=== PATIENT | male | born 1985 | race Caucasian/White ===

== ENCOUNTER 2025-01-03 12:42 | Emergency (ER) | payer OTHER ==
[~2025-01-03] VITALS: Ht 188 cm; Wt 97.5 kg
[~2025-01-03 12:42] MED LIST: CIPRO500 MG PO; IBUPROFEN800 MG PO
[2025-01-03] MEDS ORDERED: CIPROFLOXACIN IN 5 % DEXTROSE 400 MG/200 ML PIGGYBAG IV ONE (15:00)
[2025-01-03] MEDS ORDERED: LIDOCAINE HCL 1% 10ML VIAL PERCUT ONE (15:00)
[2025-01-03] MEDS ORDERED: TETANUS & DIPHTHERIA TOX,ADULT 0.5 ML VIAL IM ONE (15:15)
== END 2025-01-03 17:55 | disposition home or self-care (01) ==
LOC: ER 12:45
DX: S91.012A Laceration without foreign body, left ankle, initial encounter (principal); W45.8XXA Other foreign body or object entering through skin, initial encounter; Y93.89 Activity, other specified; Y92.89 Other specified places as the place of occurrence of the external cause; Y99.9 Unspecified external cause status; Z88.0 Allergy status to penicillin; Z88.2 Allergy status to sulfonamides